=== PATIENT | male | born 1965 | race Two or more races ===

== ENCOUNTER 2022-07-09 20:36 | Emergency (ER) | payer BC ==
[~2022-07-09] VITALS: Ht 170.2 cm; Wt 68.0 kg
[2022-07-09 20:48] VITALS: BP_SYST 148
--- NOTE | 2022-07-09 21:05 | NUR ---
Patient triaged and placed in ED rm 1. VSS and patient appears in no acute distress at this time. Accompanied by . MD Lua notified of need for MSE. Triage report given to KEAGAN Staton.
--- NOTE | 2022-07-09 21:08 | NUR ---
56 y/o M, ambulatory from home with c/o sudden onset of non-radiating chest discomfort to ctr of chest associated with heart palpitations. Pt also reports a brief onset of "Hot flashes" and gasp for air that resolved within seconds. Per pt, he has been under a lot of stress due to work. PMH of DM and controlled HTN which he does not take medication for. Pt denies any chest discomfort upon ED arrival. No acute signs of distress. Addendum: 07/09/22 at 2113 by [email or web address] Per pt, he reports drinking an Americano and another cup of coffee, which is not his normal intake.
--- NOTE | 2022-07-09 21:10 | NUR ---
PT BIBS W C/O PALPATATIONS AFTER DRINKING 2 CUPS OF COFFEE. PT STATED HE STARTED TO SWEAT. HE ALSO STATED HE HAS NOT BEEN HYDRATING TODAY. DENIES CP, SOB, DIZZINESS. A/O X4, AMBULATORY. PMH: CONTROLLED DM AND HTN
[2022-07-09] MEDS ORDERED: ASPIRIN 81 MG TAB.CHEW PO ONE (21:15)
[2022-07-09 21:36] LABS: BASOPHILS # (AUTO) 0.2 K/uL (0.0-0.2); BASOPHILS % (AUTO) 4.5 % (0.0-2.0); EOSINOPHILS # (AUTO) 0.2 K/uL (0.0-0.4); EOSINOPHILS % (AUTO) 3.5 % (0.0-4.0); HEMATOCRIT 37.9 % (36-54); HEMOGLOBIN 13.3 g/dL (14.0-18.0); LYMPHOCYTES # (AUTO) 1.3 K/uL (1.0-5.5); MEAN CORPUSCULAR HEMOGLOBIN 31 pg (27-31); MEAN CORPUSCULAR HGB CONC 35 % (32-36); MEAN CORPUSCULAR VOLUME 89 fL (79.0-98.0); MONOCYTES # (AUTO) 0.3 K/uL (0.0-1.0); MONOCYTES % (AUTO) 6.7 % (1.7-9.3); NEUTROPHILS # (AUTO) 2.7 K/uL (1.8-7.7); NEUTROPHILS % (AUTO) 57.3 % (40.0-70.0); PLATELET COUNT (AUTO) 159 K/uL (130-430); RED BLOOD CELL COUNT(AUTO) 4.26 MIL/uL (4.2-6.2); RED CELL DISTRIBUTION WIDTH 12.9 % (9.0-15.0); WHITE BLOOD COUNT (AUTO) 4.7 K/uL (4.8-10.8)
[2022-07-09 21:44] LABS: ANION GAP 7 (5-15); CALCIUM 9.1 mg/dL (8.4-11.0); CHLORIDE 103 mmol/L (98-107); CREATININE 1.27 mg/dL (0.55-1.30); GLUCOSE 151 mg/dL (70-99); UREA NITROGEN, BLOOD 24 mg/dL (8-21)
--- NOTE | 2022-07-09 21:53 | NUR ---
ERMD at bedside examining patient.
[2022-07-09 21:55] LABS: ALANINE AMINOTRANSFERASE 23 U/L (12-78); ALBUMIN 4.2 g/dL (3.4-4.8); ASPARTATE AMINOTRANSFERASE 16 U/L (10-37); TOTAL BILIRUBIN 0.3 mg/dL (0.0-1.0)
[2022-07-09 21:58] LABS: GFR AFRICAN AMERICAN 76 mL/min (>90)
[2022-07-09] MEDS ORDERED: LORazepam 2 MG/ML VIAL IVP ONE (22:45)
[2022-07-09] MEDS ORDERED: POTASSIUM CHLORIDE 20 MEQ TAB.PRT.SR PO ONE (23:30)
[2022-07-10 01:30] VITALS: BP_SYST 129
--- NOTE | 2022-07-10 01:30 | NUR ---
Patient given written and verbal discharge instructions and verbalizes understanding. ER MD discussed with patient the results and treatment provided. Patient in stable condition. ID arm band removed. IV catheter removed intact and dressing applied, no active bleeding. Patient educated on pain management and to follow up with PMD. Pain Scale 0/10.Opportunity for questions provided and answered.
== END 2022-07-10 01:30 | disposition home or self-care (01) ==
LOC: SED 20:36
DX: R00.2 Palpitations (principal); E11.9 Type 2 diabetes mellitus without complications; I10 Essential (primary) hypertension; Z79.899 Other long term (current) drug therapy
CPT/HCPCS: 99284; 96374; 71045; 80053; 83880; 83735; 85025; 84484; 36415; J2060